=== PATIENT | female | born 1965 | race Two or more races ===

== ENCOUNTER 2017-04-01 07:16 | Outpatient (CLI) | payer OTHER ==
[~2017-04-01 07:16] MED LIST changes: -CEFUROXIME500 MG PO; -DOLOGESIC 500-1 EACH PO; -GLUCOPHAGE XR500 MG; -ZYRTEC10 M3
[2017-04-01] MEDS ORDERED: ZYRTEC10 M3 (16:25)
[2017-04-01] MEDS ORDERED: GLUCOPHAGE XR500 MG (21:10)
[2017-04-02] MEDS ORDERED: CEFUROXIME500 MG PO (03:02)
[2017-04-02] MEDS ORDERED: DOLOGESIC 500-1 EACH PO (03:02)
== END 2017-04-01 07:24 | disposition home or self-care (01) ==
LOC: LAB 07:16
DX: N39.0 Urinary tract infection, site not specified (principal)

== ENCOUNTER → 2017-04-01 16:09 | Outpatient (CLI) | payer OTHER ==
[~2017-04-01 16:09] MED LIST changes: +CEFUROXIME500 MG PO; +DOLOGESIC 500-1 EACH PO; +GLUCOPHAGE XR500 MG; +ZYRTEC10 M3
== END | disposition home or self-care (01) ==
LOC: PPHC 16:09
DX: M54.5 Low back pain (principal); R73.9 Hyperglycemia, unspecified

== ENCOUNTER → 2017-04-01 | Emergency (ER) | payer OTHER ==
[~2017-04-01] VITALS: Ht 160 cm; Wt 82.6 kg
[~2017-04-01] MED LIST: AMOX1TAB12 PO; BACTROBAN OINT22 GM TP; CEFUROXIME500 MG PO; CIPRO500 MG PO; COZAAR100 MG; COZAAR100 MG PO; COZAAR50 MG PO; DOLOGESIC 500-1 EACH PO; GILTUSS TR TAB1 EACH PO; GLUCOPHAGE XR500 MG; GLUCOTROL10 MG; GLUCOTROL10 MG PO; LANTUS SOLOSTAR3 ML SQ; LANTUS SUBCUTANEO; LANTUS100 U/ML; LANTUS100 U/ML SUBCUTANEO; LEVAQUIN500 MG PO; LIPITOR40 MG; LIPITOR40 MG PO; METFORMIN HCL500 MG; METFORMIN HCL500 MG PO; NORFLEX100 MG PO; PREVACID15 MG; PREVACID15 MG PO; PRILOSEC OTC20 MG PO; PRILOSEC20 MG PO; PROVENTIL3 ML/2.5 M IH; TENORMIN50 M1; TENORMIN50 M1 PO; TENORMIN50 MG PO; TRAMADOL HCL-AP1 TAB PO; TRENTAL 400 MG PO; ULTRACET PO; ULTRAM50 MG PO; ZYRTEC10 M3; ZYRTEC10 MG PO
== END | disposition home or self-care (01) ==
LOC: ER 20:36
DX: N39.0 Urinary tract infection, site not specified (principal); R73.9 Hyperglycemia, unspecified

== ENCOUNTER 2017-04-23 07:46 | Outpatient (CLI) | payer OTHER | END 2017-04-23 08:01 | disposition home or self-care (01) | LOC: LAB 07:46 | DX: D12.2 Benign neoplasm of ascending colon (principal); D12.3 Benign neoplasm of transverse colon; R74.0 Nonspecific elevation of levels of transaminase and lactic acid dehydrogenase [LDH] ==

== ENCOUNTER → 2017-10-22 06:50 | Outpatient (CLI) | payer OTHER | END | disposition home or self-care (01) | LOC: LAB 06:50 | DX: D64.89 Other specified anemias (principal); N39.0 Urinary tract infection, site not specified; R10.9 Unspecified abdominal pain; E03.8 Other specified hypothyroidism; E78.5 Hyperlipidemia, unspecified; R07.89 Other chest pain; E55.9 Vitamin D deficiency, unspecified; R80.8 Other proteinuria; R73.09 Other abnormal glucose; Z79.01 Long term (current) use of anticoagulants ==

== ENCOUNTER 2017-11-03 10:09 | Emergency (ER) | payer OTHER ==
[~2017-11-03] VITALS: Ht 160 cm; Wt 78.0 kg
== END 2017-11-03 13:15 | disposition home or self-care (01) ==
LOC: ER 10:09
DX: M54.42 Lumbago with sciatica, left side (principal); M54.5 Low back pain

== ENCOUNTER 2017-12-17 07:51 | Outpatient (CLI) | payer OTHER | END 2017-12-17 08:10 | disposition home or self-care (01) | LOC: NUCLEAR 07:51 | DX: R07.89 Other chest pain (principal); I10 Essential (primary) hypertension; E11.9 Type 2 diabetes mellitus without complications ==

== ENCOUNTER → 2018-08-03 | Outpatient (CLI) | payer OTHER | END | disposition home or self-care (01) | LOC: LAB 16:53 | DX: J11.1 Influenza due to unidentified influenza virus with other respiratory manifestations (principal) ==

== ENCOUNTER 2019-06-06 07:22 | Outpatient (CLI) | payer OTHER | END 2019-06-06 15:00 | disposition home or self-care (01) | LOC: LAB 07:22 | DX: E11.9 Type 2 diabetes mellitus without complications (principal); Z00.00 Encounter for general adult medical examination without abnormal findings; E78.49 Other hyperlipidemia; E55.9 Vitamin D deficiency, unspecified; I10 Essential (primary) hypertension; R80.8 Other proteinuria; N39.0 Urinary tract infection, site not specified ==

== ENCOUNTER 2019-10-17 06:53 | Outpatient (CLI) | payer OTHER | END 2019-10-17 15:00 | disposition home or self-care (01) | LOC: LAB 06:53 | PROVIDERS: ATTEND Internal Medicine Cardiovascular Disease | DX: E13.9 Other specified diabetes mellitus without complications (principal); I10 Essential (primary) hypertension; E78.2 Mixed hyperlipidemia; E55.9 Vitamin D deficiency, unspecified ==

== ENCOUNTER 2019-11-01 16:15 | Outpatient (CLI) | payer OTHER | END 2019-11-01 16:20 | disposition home or self-care (01) | LOC: RAD 16:15 | PROVIDERS: ATTEND Internal Medicine Cardiovascular Disease | DX: M12.89 Other specific arthropathies, not elsewhere classified, multiple sites (principal); J44.9 Chronic obstructive pulmonary disease, unspecified; M46.47 Discitis, unspecified, lumbosacral region ==

== ENCOUNTER → 2019-11-07 | Outpatient (CLI) | payer OTHER | END | disposition home or self-care (01) | LOC: NUCLEAR 11:00 | PROVIDERS: ATTEND Internal Medicine Cardiovascular Disease | DX: G45.8 Other transient cerebral ischemic attacks and related syndromes (principal); M81.0 Age-related osteoporosis without current pathological fracture; E55.9 Vitamin D deficiency, unspecified ==

== ENCOUNTER 2019-12-22 10:00 | Outpatient (CLI) | payer OTHER | END 2019-12-22 15:47 | disposition home or self-care (01) | LOC: PPH VACUNA 10:00 | DX: Z23 Encounter for immunization (principal) ==

== ENCOUNTER 2020-02-06 07:16 | Outpatient (CLI) | payer OTHER | END 2020-02-06 07:21 | disposition home or self-care (01) | LOC: LAB 07:16 | PROVIDERS: ATTEND Internal Medicine | DX: D64.89 Other specified anemias (principal); R10.84 Generalized abdominal pain; E78.49 Other hyperlipidemia ==

== ENCOUNTER 2020-08-22 09:32 | Outpatient (CLI) | payer OTHER | END 2020-08-22 09:34 | disposition home or self-care (01) | LOC: SONOGRAMA 09:32 | PROVIDERS: ATTEND Internal Medicine Cardiovascular Disease | DX: M25.562 Pain in left knee (principal); M12.89 Other specific arthropathies, not elsewhere classified, multiple sites ==

== ENCOUNTER 2020-11-20 08:07 | Outpatient (CLI) | payer OTHER | END 2020-11-20 08:08 | disposition home or self-care (01) | LOC: LAB 08:07 | PROVIDERS: ATTEND Internal Medicine Gastroenterology | DX: K59.09 Other constipation (principal); Z11.52 Encounter for screening for COVID-19; Z86.010 Personal history of colon polyps; K21.9 Gastro-esophageal reflux disease without esophagitis; K30 Functional dyspepsia ==

== ENCOUNTER 2020-12-24 08:00 | Outpatient (CLI) | payer OTHER | END 2020-12-24 08:30 | disposition home or self-care (01) | LOC: PPH VACUNA 08:00 | PROVIDERS: ATTEND Emergency Medicine Pediatric Emergency Medicine | DX: Z23 Encounter for immunization (principal) ==

== ENCOUNTER 2021-02-13 09:00 | Outpatient (CLI) | payer OTHER | END 2021-02-13 09:30 | disposition home or self-care (01) | LOC: PPH VACUNA 09:00 | PROVIDERS: ATTEND Emergency Medicine Pediatric Emergency Medicine | DX: Z23 Encounter for immunization (principal) ==

== ENCOUNTER 2021-08-27 14:17 | Outpatient (CLI) | payer OTHER | END 2021-08-27 14:23 | disposition home or self-care (01) | LOC: MAMO-SONO 14:17 | PROVIDERS: ATTEND Internal Medicine Endocrinology, Diabetes & Metabolism | DX: N64.4 Mastodynia (principal); E04.1 Nontoxic single thyroid nodule ==

== ENCOUNTER → 2022-03-25 | Outpatient (CLI) | payer OTHER ==
[~2022-03-25] MED LIST changes: +FLEXERIL10 MG PO; +FLONASE16 GM NS; +GLUCOPHAGE XR500 MG PO; +LANTUS100 U/ML SQ; +LIPITOR20 MG; +LIPITOR20 MG PO; +SEPTRA DS TABLE1 TAB PO; +SYNTHROID125 MCG; +SYNTHROID125 MCG PO; +TENORMIN50 MG; +TRAM1TAB98 PO
== END | disposition home or self-care (01) ==
LOC: NUCLEAR 11:00
PROVIDERS: ATTEND Obstetrics & Gynecology
DX: I87.093 Postthrombotic syndrome with other complications of bilateral lower extremity (principal); Z88.8 Allergy status to other drugs, medicaments and biological substances; Z88.6 Allergy status to analgesic agent

== ENCOUNTER 2022-03-26 12:50 | Outpatient (CLI) | payer OTHER | END 2022-03-26 12:56 | disposition home or self-care (01) | LOC: LAB 12:50 | DX: U07.1 COVID-19 (principal) ==

== ENCOUNTER → 2022-04-11 | Outpatient (CLI) | payer OTHER | END | disposition home or self-care (01) | LOC: LAB 03:11 | PROVIDERS: ATTEND Obstetrics & Gynecology | DX: Z20.828 Contact with and (suspected) exposure to other viral communicable diseases (principal) ==

== ENCOUNTER 2022-04-14 15:43 | Emergency (ER) | payer OTHER ==
[~2022-04-14] VITALS: Ht 160 cm; Wt 68.0 kg
[2022-04-14] MEDS ORDERED: XOPENEX0.63 MG/3 IH (19:45)
[2022-04-14] MEDS ORDERED: MONTELUKAST SODI4 M1 PO (19:45)
[2022-04-14] MEDS ORDERED: TUSNEL LIQUID178 ML PO (19:45)
== END 2022-04-14 20:01 | disposition home or self-care (01) ==
LOC: ER 15:43
DX: R06.02 Shortness of breath (principal); Z20.822 Contact with and (suspected) exposure to COVID-19; Z88.8 Allergy status to other drugs, medicaments and biological substances; E11.9 Type 2 diabetes mellitus without complications; Z79.84 Long term (current) use of oral hypoglycemic drugs; I10 Essential (primary) hypertension; K76.0 Fatty (change of) liver, not elsewhere classified; R16.1 Splenomegaly, not elsewhere classified

== ENCOUNTER 2022-04-17 12:57 | Inpatient (IN) | payer OTHER ==
[~2022-04-17] VITALS: Ht 157.5 cm; Wt 63.5 kg
[~2022-04-17 12:57] MED LIST changes: +MONTELUKAST SODI4 M1 PO; +TUSNEL LIQUID178 ML PO; +XOPENEX0.63 MG/3 IH
[2022-04-17] MEDS ORDERED: METFORMIN HCL500 M4 (13:48)
--- NOTE | 2022-04-17 13:58 | NUR ---
SE RECIBE FEMINA ALERTA Y ORIENTADA POR COURTNEY ESFERAS, AMBULANDO. REFIERE QUE PRESENTA PRESION ARTERIAL ELEVADA, TAQUICARDIA Y DIFICULTAD RESPIRATORIA DE COURTNEY SALINAS DE EVOLUCION. PRESENTA REFERIDO DE DR. TIRADO.
--- NOTE | 2022-04-17 14:53 | NUR ---
SE RECIBE PTE ALERTA ORIENTADA X3.SE ANGEL MUESTRAS DE LABORATORIO USANDO MEDIDAS ASEPTICAS.SE ADMINISTRAN MEDICAMENTOS [place] ORDEN MEDICA.SE ORIENTA PTE SOBRE IMPORTANCIA DE [place] MEDICO.FRANCISCO J JAVED.
--- NOTE | 2022-04-17 15:04 | NUR ---
SE RECIBE A PTE ALERTA Y ORIENTADA X3. PTE EN LILLIAM CON BARANDAS ELEVADAS POR SEGURIDAD. SE OBSERVA VENOPUNCION CON ANGIO 18 EN ANTEBRAZO DELORES. AREA EMMA DE EDEMA Y ENROJECIMIENTO.
[2022-04-24] MEDS ORDERED: NEURONTIN600 MG PO (16:18)
[2022-04-24] MEDS ORDERED: CLOTRIMAZOLE10 MG MM (16:18)
[2022-04-24] MEDS ORDERED: MONTELUKAST SOD10 MG PO (16:18)
[2022-04-24] MEDS ORDERED: AMLODIPINE BESYL5 MG PO (16:18)
[2022-04-24] MEDS ORDERED: GLIPIZIDE5 MG PO (16:18)
[2022-04-24] MEDS ORDERED: ATENOLOL50 MG PO (16:18)
[2022-04-24] MEDS ORDERED: XOPENEX0.63 MG/3 IH (16:18)
[2022-04-24] MEDS ORDERED: MEDROLPACK PO (16:18)
[2022-04-24] MEDS ORDERED: BENZONATATE200 M1 PO (16:18)
[2022-04-24] MEDS ORDERED: SYMBICORT 80/10.2 GM IH (16:18)
[2022-04-24] MEDS ORDERED: METFORMIN HCL1000 MG PO (16:18)
[2022-04-24] MEDS ORDERED: IPRATROPIU0.2 MG/1 M IH (16:18)
[2022-04-24] MEDS ORDERED: GABAPENTIN100 MG PO (16:18)
[2022-04-24] MEDS ORDERED: Lantus 1000 UNITS/10 SUBCUTANEO (16:18)
[2022-04-24] MEDS ORDERED: BUTALB-ACETAMI1 EAC2 PO (16:34)
[2022-04-24] MEDS ORDERED: MOMETASONE FURO15 G2 TOP (16:34)
[2022-04-24] MEDS ORDERED: GYNE-LOTRIMIN45 GM VAG (16:34)
[2022-04-24] MEDS ORDERED: PEPCID AC20 MG PO (16:39)
== END 2022-04-24 19:01 | disposition home or self-care (01) | DRG 202 ==
LOC: ER 12:57 → MEDI 20:18
PROVIDERS: ADMIT Internal Medicine; ATTEND Internal Medicine
PROC: 3E0F7GC Introduction of Other Therapeutic Substance into Respiratory Tract, Via Natural or Artificial Opening (ICD-10-PCS; principal; 2022-04-17)
PROC: 3E0F7SF Introduction of Other Gas into Respiratory Tract, Via Natural or Artificial Opening (ICD-10-PCS; 2022-04-17)
PROC: 4A12X4Z Monitoring of Cardiac Electrical Activity, External Approach (ICD-10-PCS; 2022-04-17)
PROC: B246ZZZ Ultrasonography of Right and Left Heart (ICD-10-PCS; 2022-04-17)
DX: J45.901 Unspecified asthma with (acute) exacerbation (principal); B37.81 Candidal esophagitis; U09.9 Post COVID-19 condition, unspecified; E11.9 Type 2 diabetes mellitus without complications; I10 Essential (primary) hypertension; Z79.84 Long term (current) use of oral hypoglycemic drugs

== ENCOUNTER 2022-07-01 07:18 | Outpatient (CLI) | payer OTHER ==
[~2022-07-01 07:18] MED LIST changes: +AMLODIPINE BESYL5 MG PO; +ATENOLOL50 MG PO; +BENZONATATE200 M1 PO; +BUTALB-ACETAMI1 EAC2 PO; +CLOTRIMAZOLE10 MG MM; +GABAPENTIN100 MG PO; +GLIPIZIDE5 MG PO; +GYNE-LOTRIMIN45 GM VAG; +IPRATROPIU0.2 MG/1 M IH; +Lantus 1000 UNITS/10 SUBCUTANEO; +MEDROLPACK PO; +METFORMIN HCL1000 MG PO; +METFORMIN HCL500 M4; +MOMETASONE FURO15 G2 TOP; +MONTELUKAST SOD10 MG PO; +NEURONTIN600 MG PO; +PEPCID AC20 MG PO; +SYMBICORT 80/10.2 GM IH
== END 2022-07-01 07:28 | disposition home or self-care (01) ==
LOC: LAB 07:18
PROVIDERS: ATTEND Internal Medicine Endocrinology, Diabetes & Metabolism
DX: E11.69 Type 2 diabetes mellitus with other specified complication (principal); D64.9 Anemia, unspecified; D51.8 Other vitamin B12 deficiency anemias; E78.2 Mixed hyperlipidemia; E55.9 Vitamin D deficiency, unspecified; N39.0 Urinary tract infection, site not specified

== ENCOUNTER 2022-07-10 12:18 | Outpatient (CLI) | payer OTHER | END 2022-07-10 12:28 | disposition home or self-care (01) | LOC: SONOGRAMA 12:18 | PROVIDERS: ATTEND Allergy & Immunology | DX: E04.2 Nontoxic multinodular goiter (principal); E11.65 Type 2 diabetes mellitus with hyperglycemia; E78.2 Mixed hyperlipidemia; I11.9 Hypertensive heart disease without heart failure; E11.41 Type 2 diabetes mellitus with diabetic mononeuropathy ==

== ENCOUNTER → 2022-07-30 15:32 | Outpatient (CLI) | payer OTHER | END | disposition home or self-care (01) | LOC: LAB 15:32 | PROVIDERS: ATTEND Internal Medicine Pulmonary Disease | DX: R05.8 Other specified cough (principal); R06.02 Shortness of breath; R50.9 Fever, unspecified; Z20.822 Contact with and (suspected) exposure to COVID-19 ==

== ENCOUNTER 2022-09-10 07:16 | Outpatient (CLI) | payer OTHER | END 2022-09-10 07:23 | disposition home or self-care (01) | LOC: LAB 07:16 | PROVIDERS: ATTEND Internal Medicine | DX: R19.5 Other fecal abnormalities (principal); Z12.11 Encounter for screening for malignant neoplasm of colon ==

== ENCOUNTER → 2022-09-11 16:57 | Outpatient (CLI) | payer OTHER | END | disposition home or self-care (01) | LOC: LAB 16:57 | PROVIDERS: ATTEND Internal Medicine | DX: M54.17 Radiculopathy, lumbosacral region (principal) ==

== ENCOUNTER 2022-11-17 15:06 | Outpatient (CLI) | payer OTHER | END 2022-11-17 15:11 | disposition home or self-care (01) | LOC: SONOGRAMA 15:06 | PROVIDERS: ATTEND Specialist/Technologist, Other Nephrology | DX: R10.9 Unspecified abdominal pain (principal); N18.30 Chronic kidney disease, stage 3 unspecified; R31.9 Hematuria, unspecified ==

== ENCOUNTER 2023-02-13 15:09 | Emergency (ER) | payer OTHER ==
[~2023-02-13] VITALS: Ht 160 cm; Wt 70.3 kg
[2023-02-13] MEDS ORDERED: ORPHENADRI30 MG/1 M1 IM (17:50)
== END 2023-02-13 17:56 | disposition home or self-care (01) ==
LOC: ER 15:09
DX: M54.89 Other dorsalgia (principal); Z88.8 Allergy status to other drugs, medicaments and biological substances; I10 Essential (primary) hypertension; E11.9 Type 2 diabetes mellitus without complications; Z79.84 Long term (current) use of oral hypoglycemic drugs

== ENCOUNTER 2023-05-11 07:36 | Outpatient (CLI) | payer OTHER ==
[~2023-05-11 07:36] MED LIST changes: +ORPHENADRI30 MG/1 M1 IM
[2023-05-11 08:04] LABS: HEMATOCRIT 39.8 % (36.0-45.00); HEMOGLOBIN 13.8 g/dL (12.0-15.00); MEAN CELL VOLUME 88.7 fL (80.00-100.00); MEAN CORPUSCULAR HEMOGLOBIN 30.8 pg (27.00-32.0); MEAN CORPUSCULAR HGB CONC 34.7 g/dl (32.0-36.0); PLATELET COUNT 254 K/uL (150-450); RED BLOOD COUNT 4.49 M/uL (4.00-6.00); RED CELL DISTRIBUTION WIDTH 12.8 % (11.5-14.5)
[2023-05-11 08:54] LABS: PH,URINE 6.5 (5.0-8.0); URINE APPEARANCE Clear; URINE BILIRRUBIN Negative (NEGATIVE); URINE BLOOD Negative; URINE COLOR Yellow; URINE LEUKOCYTE Large; URINE NITRATE Negative; URINE PROTEIN Negative (NEGATIVE)
[2023-05-11 08:56] LABS: ALBUMIN 3.8 gm/dL (3.4-5.0); BILIRUBIN TOTAL 0.79 mg/dL (0.3-1.2); CALCIUM 9.6 mg/dL (8.5-10.1); CREATININE SERUM 0.5 mg/dL (0.55-1.02); GFR 127.17; GLOBULINA 3.7 G/DL (2.4-3.5); POTASSIUM 4.39 mEq/L (3.5-5.1); TOTAL PROTEIN 7.5 gm/dL (6.4-8.2); TSH 0.853 uIU/mL (0.358-3.74)
[2023-05-11 08:58] LABS: URINE BACTERIA 282.2 uL (0.0-1933); URINE EPITHELIAL CELLS 20.5 uL (0.0-38.8); URINE RBC 2.5 uL (0.0-20.8); URINE WBC 58.4 uL (0.0-23.2)
[2023-05-11 08:58] LABS: CHOL HDL RATIO 7.3 (0-5.0)
[2023-05-11 09:56] LABS: URINE GLUCOSE 250 MG/DL (NEGATIVE)
== END 2023-05-11 07:40 | disposition home or self-care (01) ==
LOC: LAB 07:36
PROVIDERS: ATTEND Internal Medicine
DX: D64.9 Anemia, unspecified (principal); E11.9 Type 2 diabetes mellitus without complications; E78.00 Pure hypercholesterolemia, unspecified; N39.0 Urinary tract infection, site not specified; E03.8 Other specified hypothyroidism

== ENCOUNTER 2023-05-11 08:14 | Outpatient (CLI) | payer OTHER | END 2023-05-11 08:20 | disposition home or self-care (01) | LOC: TOM 08:14 | PROVIDERS: ATTEND Internal Medicine Pulmonary Disease | DX: J45.40 Moderate persistent asthma, uncomplicated (principal); R91.1 Solitary pulmonary nodule; E66.01 Morbid (severe) obesity due to excess calories ==

== ENCOUNTER 2023-06-06 09:08 | Outpatient (CLI) | payer OTHER ==
[2023-06-06 10:21] LABS: PH,URINE 5.5 (5.0-8.0); URINE APPEARANCE Clear; URINE BILIRRUBIN Negative (NEGATIVE); URINE BLOOD Negative; URINE COLOR Yellow; URINE GLUCOSE Negative (NEGATIVE); URINE LEUKOCYTE Negative; URINE NITRATE Negative; URINE PROTEIN Negative (NEGATIVE)
[2023-06-06 10:26] LABS: URINE BACTERIA 12.5 uL (0.0-1933); URINE EPITHELIAL CELLS 2.4 uL (0.0-38.8); URINE WBC 2.7 uL (0.0-23.2)
[2023-06-06 10:36] LABS: URINE RBC 0.5 uL (0.0-20.8)
[2023-06-06 11:37] LABS: ALBUMIN 3.6 gm/dL (3.4-5.0); BILIRUBIN TOTAL 0.52 mg/dL (0.3-1.2); CALCIUM 9.7 mg/dL (8.5-10.1); CHOL HDL RATIO 5.6 (0-5.0); CREATININE SERUM 0.44 mg/dL (0.55-1.02); GFR 147.38; GLOBULINA 3.5 G/DL (2.4-3.5); POTASSIUM 4.44 mEq/L (3.5-5.1); TOTAL PROTEIN 7.1 gm/dL (6.4-8.2); TSH 0.412 uIU/mL (0.358-3.74)
== END 2023-06-06 09:09 | disposition home or self-care (01) ==
LOC: LAB 09:08
PROVIDERS: ATTEND Allergy & Immunology
DX: E78.2 Mixed hyperlipidemia (principal); E11.65 Type 2 diabetes mellitus with hyperglycemia; I11.9 Hypertensive heart disease without heart failure; E04.2 Nontoxic multinodular goiter; E11.41 Type 2 diabetes mellitus with diabetic mononeuropathy

== ENCOUNTER 2023-07-13 10:33 | Emergency (ER) | payer OTHER ==
[~2023-07-13] VITALS: Ht 160 cm; Wt 70.3 kg
[2023-07-13] MEDS ORDERED: FAMOTIDINE/PF 20 MG in 0.9 % SODIUM CHLORIDE 8 ML IV PUSH STA (11:30)
[2023-07-13] MEDS ORDERED: ONDANSETRON HCL 2 MG/ML VIAL IV ONE (11:30)
[2023-07-13] MEDS ORDERED: 0.9 % SODIUM CHLORIDE 1,000 ML IV SCH (11:45)
[2023-07-13] MEDS ORDERED: MEPERIDINE HCL/PF 50 MG/ML VIAL IM ONE (11:45)
[2023-07-13 12:17] LABS: HEMATOCRIT 38.9 % (36.0-45.00); HEMOGLOBIN 13.5 g/dL (12.0-15.00); MEAN CELL VOLUME 86.4 fL (80.00-100.00); MEAN CORPUSCULAR HEMOGLOBIN 29.9 pg (27.00-32.0); MEAN CORPUSCULAR HGB CONC 34.6 g/dl (32.0-36.0); PLATELET COUNT 278 K/uL (150-450); RED BLOOD COUNT 4.51 M/uL (4.00-6.00); RED CELL DISTRIBUTION WIDTH 13.1 % (11.5-14.5)
[2023-07-13 12:55] LABS: ALBUMIN 3.8 gm/dL (3.4-5.0); BILIRUBIN TOTAL 0.65 mg/dL (0.3-1.2); BILIRUBIN,CONJUGATED 0.17 mg/dL (0.0-0.2); BILIRUBIN,UNCONJUGATED 0.48 mg/dL (0.0-0.6); CALCIUM 10.2 mg/dL (8.5-10.1); CREATININE SERUM 0.56 mg/dL (0.55-1.02); GFR 111.58; GLOBULINA 4.6 G/DL (2.4-3.5); POTASSIUM 3.67 mEq/L (3.5-5.1); TOTAL PROTEIN 8.4 gm/dL (6.4-8.2)
[2023-07-13] MEDS ORDERED: ONDANSETRON ODT8 MG PO (15:46)
[2023-07-13] MEDS ORDERED: PEPCID AC20 MG PO (15:46)
[2023-07-13] MEDS ORDERED: OMEPRAZOLE40 MG PO (15:46)
== END 2023-07-13 16:54 | disposition home or self-care (01) ==
LOC: ER 10:33
PROVIDERS: General Practice
DX: R10.11 Right upper quadrant pain (principal); Z88.6 Allergy status to analgesic agent

== ENCOUNTER → 2023-09-26 07:47 | Outpatient (CLI) | payer OTHER ==
[~2023-09-26 07:47] MED LIST changes: +OMEPRAZOLE40 MG PO; +ONDANSETRON ODT8 MG PO
[2023-09-26 09:34] LABS: URINE APPEARANCE Clear; URINE BILIRRUBIN Negative (NEGATIVE); URINE BLOOD Negative; URINE COLOR Yellow; URINE LEUKOCYTE Moderate; URINE NITRATE Negative; URINE PROTEIN Negative (NEGATIVE)
[2023-09-26 09:39] LABS: URINE BACTERIA 2446.6 uL (0.0-1933); URINE EPITHELIAL CELLS 37.5 uL (0.0-38.8); URINE RBC 24.4 uL (0.0-20.8); URINE WBC 190.9 uL (0.0-23.2)
[2023-09-26 10:08] LABS: CALCIUM 9.1 mg/dL (8.5-10.1); CREATININE SERUM 0.46 mg/dL (0.55-1.02); GFR 139.52; POTASSIUM 4.29 mEq/L (3.5-5.1)
[2023-09-26 10:16] LABS: URINE GLUCOSE >=1000 MG/DL (NEGATIVE); URINE YEAST FEW /hpf
[2023-09-26 11:44] LABS: ERYTHROCYTE SEDIMENTATION RATE 52 mm/hr
[2023-09-26 11:58] LABS: HEMATOCRIT 38.4 % (36.0-45.00); HEMOGLOBIN 13.3 g/dL (12.0-15.00); MEAN CELL VOLUME 86.6 fL (80.00-100.00); MEAN CORPUSCULAR HGB CONC 34.7 g/dl (32.0-36.0); PLATELET COUNT 207 K/uL (150-450); RED BLOOD COUNT 4.44 M/uL (4.00-6.00)
[2023-09-26 13:21] LABS: VITAMIN D3 25 HYDROXY 24.95 ng/ml (30-120)
[2023-09-30 08:16] LABS: sjogrens ssa < 0.2; sjogrens ssb < 0.2
== END | disposition home or self-care (01) ==
LOC: LAB 07:47
PROVIDERS: ATTEND Internal Medicine
DX: E55.9 Vitamin D deficiency, unspecified (principal); R76.9 Abnormal immunological finding in serum, unspecified; M06.9 Rheumatoid arthritis, unspecified

== ENCOUNTER 2023-10-15 12:28 | Outpatient (CLI) | payer OTHER | END 2023-10-15 12:46 | disposition home or self-care (01) | LOC: MAMO-SONO 12:28 | PROVIDERS: ATTEND General Practice | DX: N60.11 Diffuse cystic mastopathy of right breast (principal); N60.12 Diffuse cystic mastopathy of left breast; N64.0 Fissure and fistula of nipple; N63.0 Unspecified lump in unspecified breast ==

== ENCOUNTER 2023-11-28 08:13 | Outpatient (CLI) | payer OTHER ==
[2023-11-28 09:52] LABS: HEMATOCRIT 39.5 % (36.0-45.00); HEMOGLOBIN 13.6 g/dL (12.0-15.00); MEAN CELL VOLUME 85.7 fL (80.00-100.00); MEAN CORPUSCULAR HEMOGLOBIN 29.5 pg (27.00-32.0); MEAN CORPUSCULAR HGB CONC 34.4 g/dl (32.0-36.0); PLATELET COUNT 251 K/uL (150-450); RED CELL DISTRIBUTION WIDTH 13.3 % (11.5-14.5)
[2023-11-28 10:30] LABS: ALBUMIN 3.7 gm/dL (3.4-5.0); BILIRUBIN TOTAL 0.52 mg/dL (0.3-1.2); CALCIUM 9.4 mg/dL (8.5-10.1); CHOL HDL RATIO 9.9 (0-5.0); CREATININE SERUM 0.58 mg/dL (0.55-1.02); GFR 106.77; GLOBULINA 3.5 G/DL (2.4-3.5); POTASSIUM 4.61 mEq/L (3.5-5.1); TOTAL PROTEIN 7.2 gm/dL (6.4-8.2); TSH 0.463 uIU/mL (0.358-3.74)
[2023-11-28 11:03] LABS: ob NEGATIVE (NEGATIVE)
[2023-11-29 11:45] LABS: URINE APPEARANCE Clear; URINE BILIRRUBIN Negative (NEGATIVE); URINE BLOOD Negative; URINE COLOR Yellow; URINE KETONE Trace (NEGATIVE); URINE LEUKOCYTE Negative; URINE NITRATE Negative; URINE PROTEIN Negative (NEGATIVE); URINE UROBILINOGEN 0.2 E.U./dl
[2023-11-29 11:49] LABS: URINE EPITHELIAL CELLS 25.8 uL (0.0-38.8); URINE RBC 23.6 uL (0.0-20.8); URINE WBC 31.3 uL (0.0-23.2)
[2023-11-29 12:07] LABS: URINE CAST 0.91 uL (0.0-1.40); URINE GLUCOSE >=1000 MG/DL (NEGATIVE)
[2023-11-29 12:08] LABS: URINE YEAST MODERATE /hpf
== END 2023-11-28 10:17 | disposition home or self-care (01) ==
LOC: LAB 08:13
PROVIDERS: ATTEND Internal Medicine
DX: D64.9 Anemia, unspecified (principal); E11.9 Type 2 diabetes mellitus without complications; E78.00 Pure hypercholesterolemia, unspecified; N39.0 Urinary tract infection, site not specified; E03.8 Other specified hypothyroidism; N18.31 Chronic kidney disease, stage 3a; Z12.11 Encounter for screening for malignant neoplasm of colon; E55.9 Vitamin D deficiency, unspecified

== ENCOUNTER 2024-07-11 06:55 | Outpatient (CLI) | payer OTHER ==
[2024-07-11 07:41] LABS: HEMATOCRIT 38.4 % (36.0-45.00); HEMOGLOBIN 13.2 g/dL (12.0-15.00); MEAN CELL VOLUME 86.4 fL (80.00-100.00); MEAN CORPUSCULAR HEMOGLOBIN 29.7 pg (27.00-32.0); MEAN CORPUSCULAR HGB CONC 34.3 g/dl (32.0-36.0); PLATELET COUNT 231 K/uL (150-450); RED BLOOD COUNT 4.45 M/uL (4.00-6.00); RED CELL DISTRIBUTION WIDTH 13.8 % (11.5-14.5)
[2024-07-11 08:31] LABS: ALBUMIN 3.7 gm/dL (3.4-5.0); BILIRUBIN TOTAL 0.55 mg/dL (0.3-1.2); CALCIUM 9.3 mg/dL (8.5-10.1); CHOL HDL RATIO 5.8 (0-5.0); CREATININE SERUM 0.41 mg/dL (0.55-1.02); GFR 159.33; GLOBULINA 3.6 G/DL (2.4-3.5); POTASSIUM 3.51 mEq/L (3.5-5.1); TOTAL PROTEIN 7.3 gm/dL (6.4-8.2); TSH 0.894 uIU/mL (0.358-3.74)
[2024-07-11 09:04] LABS: URINE APPEARANCE Clear; URINE BILIRRUBIN Negative (NEGATIVE); URINE BLOOD Negative; URINE COLOR Yellow; URINE GLUCOSE Negative (NEGATIVE); URINE KETONE Negative (NEGATIVE); URINE LEUKOCYTE Moderate; URINE NITRATE Negative; URINE PROTEIN Negative (NEGATIVE); URINE UROBILINOGEN 0.2 E.U./dl
[2024-07-11 09:09] LABS: URINE BACTERIA 682.7 uL (0.0-1933); URINE EPITHELIAL CELLS 20.2 uL (0.0-38.8); URINE RBC 11.1 uL (0.0-20.8); URINE WBC 47.1 uL (0.0-23.2)
[2024-07-11 09:13] LABS: URINE CAST 0.14 uL (0.0-1.40)
[2024-07-11 09:14] LABS: ob NEGATIVE (NEGATIVE)
== END 2024-07-11 07:00 | disposition home or self-care (01) ==
LOC: LAB 06:55
PROVIDERS: ATTEND Internal Medicine
DX: D64.9 Anemia, unspecified (principal); E11.9 Type 2 diabetes mellitus without complications; E78.2 Mixed hyperlipidemia; N39.0 Urinary tract infection, site not specified; E11.65 Type 2 diabetes mellitus with hyperglycemia; E03.8 Other specified hypothyroidism; N18.31 Chronic kidney disease, stage 3a; Z12.11 Encounter for screening for malignant neoplasm of colon; E55.9 Vitamin D deficiency, unspecified

== ENCOUNTER 2024-07-11 08:00 | Outpatient (CLI) | payer OTHER | END 2024-07-11 08:04 | disposition home or self-care (01) | LOC: TOM 08:00 | PROVIDERS: ATTEND Internal Medicine Pulmonary Disease | DX: R91.1 Solitary pulmonary nodule (principal) ==

== ENCOUNTER 2024-07-20 11:55 | Outpatient (CLI) | payer OTHER | END 2024-07-20 11:56 | disposition home or self-care (01) | LOC: SONOGRAMA 11:55 | PROVIDERS: ATTEND Internal Medicine | DX: E04.2 Nontoxic multinodular goiter (principal) ==

== ENCOUNTER 2024-07-29 07:31 | Outpatient (CLI) | payer OTHER | END 2024-07-29 07:32 | disposition home or self-care (01) | LOC: NUCLEAR 07:31 | PROVIDERS: ATTEND Internal Medicine | DX: I20.9 Angina pectoris, unspecified (principal) ==

== ENCOUNTER 2024-09-02 11:56 | Outpatient (CLI) | payer OTHER | END 2024-09-02 11:57 | disposition home or self-care (01) | LOC: NUCLEAR 11:56 | PROVIDERS: ATTEND Internal Medicine | DX: M81.0 Age-related osteoporosis without current pathological fracture (principal) ==

== ENCOUNTER 2025-01-09 07:18 | Outpatient (CLI) | payer OTHER ==
[2025-01-09 08:34] LABS: URINE APPEARANCE Clear; URINE BACTERIA 841.1 uL (0.0-1933); URINE BILIRRUBIN Negative (NEGATIVE); URINE BLOOD Negative; URINE COLOR Yellow; URINE EPITHELIAL CELLS 51.6 uL (0.0-38.8); URINE GLUCOSE Negative (NEGATIVE); URINE KETONE Negative (NEGATIVE); URINE LEUKOCYTE Small; URINE NITRATE Negative; URINE PROTEIN Trace (NEGATIVE); URINE RBC 42.8 uL (0.0-20.8); URINE UROBILINOGEN 1.0 E.U./dl; URINE WBC 74.7 uL (0.0-23.2)
[2025-01-09 08:35] LABS: BASO % 0.4 % (0.1-1.2); EOS # 0.18 (0.04-0.54); EOS % 2.2 % (0.7-7.0); LYMPH # 2.63 (1.18-3.74); LYMPH % 31.8 % (19.3-53.1); MEAN PLATELET VOLUME 9.30 fl (9.4-12.4); MONO # 0.56 (0.24-0.82); MONO % 6.8 % (4.7-12.5); NEUT # 4.83 (1.56-6.13); NEUT % 58.3 % (34.0-71.1); RED CELL DISTRIBUTION WIDTH 12.2 % (11.6-14.4)
[2025-01-09 08:49] LABS: ERYTHROCYTE SEDIMENTATION RATE 60 mm/hr (0-30)
[2025-01-09 09:03] LABS: URINE CAST 0.00 uL (0.0-1.40)
[2025-01-09 09:23] LABS: ALT/SGPT 36.0 U/L (12-78); AST/SGOT 28.0 U/L (15-37); BUN CREA RATIO 22.0 (7.0-25.0); CREATININE SERUM 0.46 mg/dL (0.55-1.02); GFR 139.04; GLUCOSE FASTING 143.0 mg/dL (65-100); OSMOLALITY SERUM 281.0 MOSM/KG (275-295)
[2025-01-09 12:12] LABS: VITAMIN D3 25 HYDROXY 35.51 ng/ml (30-120)
== END 2025-01-09 07:21 | disposition home or self-care (01) ==
LOC: LAB 07:18
PROVIDERS: ATTEND Internal Medicine
DX: E55.9 Vitamin D deficiency, unspecified (principal); D64.9 Anemia, unspecified; R76.9 Abnormal immunological finding in serum, unspecified; R76.0 Raised antibody titer

== ENCOUNTER → 2025-01-24 07:56 | Outpatient (CLI) | payer OTHER ==
[2025-01-24 08:45] LABS: URINE APPEARANCE Clear; URINE BILIRRUBIN Negative (NEGATIVE); URINE BLOOD Negative; URINE COLOR Yellow; URINE KETONE Trace (NEGATIVE); URINE LEUKOCYTE Small; URINE NITRATE Negative; URINE PROTEIN Trace (NEGATIVE); URINE UROBILINOGEN 0.2 E.U./dl
[2025-01-24 08:47] LABS: URINE BACTERIA 555.5 uL (0.0-1933); URINE EPITHELIAL CELLS 20.1 uL (0.0-38.8); URINE RBC 3.5 uL (0.0-20.8); URINE WBC 39.8 uL (0.0-23.2)
[2025-01-24 09:04] LABS: URINE CAST 0.14 uL (0.0-1.40); URINE GLUCOSE 100 MG/DL (NEGATIVE)
== END | disposition home or self-care (01) ==
LOC: LAB 07:56
PROVIDERS: ATTEND Internal Medicine
DX: N30.00 Acute cystitis without hematuria (principal)